=== PATIENT | female | born 1940 | race Caucasian/White ===

== ENCOUNTER → 2017-08-01 | Outpatient (CLI) | payer MEDICARE ==
--- NOTE | 2017-08-01 15:43 | RAD ---
Indication: Lung nodule. Axial imaging through the chest was performed without intravenous contrast. No prior studies are available for comparison. No axillary lymphadenopathy is detected. No hilar or mediastinal lymphadenopathy is identified. There is a very large hiatal hernia present. No pericardial or pleural fluid is identified. There are innumerable tiny nodules noted throughout bilateral upper and lower lobes. Many of these are subpleural in location. These all appear to be approximately 2 to 5 mm in size. No dominant mass is identified. The upper abdomen demonstrates postop changes of right nephrectomy. There are bilateral breast implants with calcifications of the implant shells. Impression: 1. Very large hiatal hernia. 2. Innumerable subcentimeter pulmonary nodules. These are indeterminate. These could be owing to prior granulomatous exposure, however, metastatic disease cannot be entirely excluded. Close follow-up is recommended with repeat CT chest in 3 months to confirm stability. PQRS Compliance Statement: One or more of the following individualized dose reduction techniques were utilized for this examination: 1. Automated exposure control 2. Adjustment of the mA and/or kV according to patient size 3. Use of iterative reconstruction technique
== END | disposition home or self-care (01) ==
LOC: CT 14:59
PROVIDERS: ATTEND Internal Medicine Pulmonary Disease
DX: R91.8 Other nonspecific abnormal finding of lung field (principal); K44.9 Diaphragmatic hernia without obstruction or gangrene; Z90.5 Acquired absence of kidney; Z98.890 Other specified postprocedural states
CPT/HCPCS: 71250

== ENCOUNTER → 2017-12-09 | Outpatient (CLI) | payer MEDICARE ==
--- NOTE | 2017-12-09 13:42 | RAD ---
Indication: Right renal cancer status post right nephrectomy in April 2017. Technique: CT abdomen and pelvis without IV contrast with multiplanar reformats. Comparison: None Findings: Limited study due to lack of IV contrast. Noncontrast appearance of the liver, spleen, gallbladder, pancreas, adrenals is within normal limits. Status post right nephrectomy. No abnormal soft tissue in the surgical bed. Left kidney demonstrates no hydronephrosis or nephrolithiasis. No retroperitoneal or pelvic adenopathy. No bowel obstruction. Bladder shows no radiopaque stones. Uterus is surgically absent. No solid adnexal lesions. No suspicious bony lesions. Impression: Limited study due to lack of IV contrast. Post surgical changes from right nephrectomy. No obvious soft tissue metastasis in the abdomen or pelvis. PQRS Compliance Statement: One or more of the following individualized dose reduction techniques were utilized for this examination: 1. Automated exposure control 2. Adjustment of the mA and/or kV according to patient size 3. Use of iterative reconstruction technique
== END | disposition home or self-care (01) ==
LOC: CT 12:36
PROVIDERS: ATTEND Family Medicine
DX: C64.1 Malignant neoplasm of right kidney, except renal pelvis (principal); Z90.5 Acquired absence of kidney; Z85.528 Personal history of other malignant neoplasm of kidney
CPT/HCPCS: 74176

== ENCOUNTER → 2017-12-09 | Outpatient (CLI) | payer MEDICARE ==
--- NOTE | 2017-12-09 13:38 | RAD ---
Indication: Lung nodule. History of right kidney cancer. Technique: CT of chest, abdomen and pelvis without IV contrast Comparison: Previous CT from 08/01/2017. Findings: Limited study due to lack of IV contrast. Clear neck base. Aberrant right superior and artery noted. Heart is normal in size. No pericardial or pleural effusion. Bilateral breast implants noted. 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 No axillary, mediastinal or hilar adenopathy. Diffuse bilateral 2 to 3 mm nodules are seen also seen on previous study. The patient registration representative nodule in the right middle lobe measuring 4 mm (series 2 image [id number]). No suspicious bony lesion. Impression: 1. Stable diffuse bilateral innumerable 2 to 4 mm pulmonary nodules. These may be inflammatory or infectious nodules. Although less likely metastatic disease not ruled out. Continued surveillance recommended. 2. Large hiatal hernia with herniation of stomach into the thorax. PQRS Compliance Statement: One or more of the following individualized dose reduction techniques were utilized for this examination: 1. Automated exposure control 2. Adjustment of the mA and/or kV according to patient size 3. Use of iterative reconstruction technique
== END | disposition home or self-care (01) ==
LOC: CT 12:45
PROVIDERS: ATTEND Internal Medicine Pulmonary Disease
DX: R91.8 Other nonspecific abnormal finding of lung field (principal); K44.9 Diaphragmatic hernia without obstruction or gangrene; Z85.528 Personal history of other malignant neoplasm of kidney
CPT/HCPCS: 71250

== ENCOUNTER → 2018-06-30 | Outpatient (CLI) | payer MEDICARE ==
--- NOTE | 2018-06-30 15:14 | RAD ---
CT CHEST WO CONTRAST dated 06/30/2018 3:30 PM Indication: Follow-up lung nodule.LUNG NODULE. Comparison: 12/09/2017 Technique: Contiguous axial imaging of the chest performed without the administration of intravenous contrast. One or more of the following individualized dose reduction techniques were utilized for this examination: 1. Automated exposure control 2. Adjustment of the mA and/or kV according to patient size 3. Use of iterative reconstruction technique Findings: Heart size is within normal limits. No pericardial effusion. There is an apparent right subclavian artery. Thoracic aorta normal in caliber. No mediastinal, hilar or axillary lymphadenopathy. Mild heterogeneity of the thyroid gland, unchanged. There is a large hiatal hernia, unchanged. Central airways are patent. Mild diffuse bronchial wall thickening. Too numerous to count small nodules scattered throughout both lungs, predominantly in a subpleural and peribronchial vascular distribution, not significantly changed given differences in technique. No consolidation or pleural effusion. No pneumothorax. Limited images of upper abdomen unremarkable. There is a small splenic artery aneurysm measuring 12 mm diameter, unchanged. The right kidney is surgically absent. No acute bony abnormality. Multilevel spondylosis. IMPRESSION: 1. Too numerous to count noncalcified pulmonary nodules scattered throughout both lungs, stable from prior exam. This is nonspecific. Consider chronic atypical infection or old granulomatous disease. Metastatic disease considered less likely due to lack of interval change. 2. Large hiatal hernia. 3. Aberrant right subclavian artery. 4. Small splenic artery aneurysm, unchanged. Electronically signed by: Chong Pruett MD (06/30/2018 3:10 PM) [id number]
== END | disposition home or self-care (01) ==
LOC: CT 14:29
PROVIDERS: ATTEND Internal Medicine Pulmonary Disease
DX: R91.1 Solitary pulmonary nodule (principal); K44.9 Diaphragmatic hernia without obstruction or gangrene; I72.8 Aneurysm of other specified arteries; M47.894 Other spondylosis, thoracic region
CPT/HCPCS: 71250

== ENCOUNTER → 2019-03-29 | Outpatient (CLI) | payer MEDICARE ==
[~2019-03-29] MED LIST: IOHEXOL 240 MG/ML 50ML VIAL. ONE; IOHEXOL 300 MG/ML 75 ML VIAL. IV ONE
[2019-03-29 08:05] LABS: CREATININE 1.2 mg/dL (0.6-1.0); GFR 43.7
--- NOTE | 2019-03-29 09:43 | RAD ---
PQRS Compliance statement: One or more of the following individualized dose reduction techniques were utilized for this examination: 1. Automated exposure control. 2. Adjustment of the mA and/or kV according to patient size. 3. Use of iterative reconstruction technique. Indication:Right renal cell carcinoma. Status post right nephrectomy. TECHNIQUE: CT abdomen and pelvis with IV contrast with multiplanar reformats. COMPARISON: CT abdomen pelvis from 12/09/2017. FINDINGS: Heart is normal in size. No pericardial or pleural effusion. Large sliding hiatal hernia noted. Mild centrilobular nodules are seen in the bilateral lower lobes likely infectious or inflammatory. Liver, spleen, bladder, pancreas, right adrenal within normal limits. Stable nodular thickening of the left adrenal gland likely secondary to adenomatous hyperplasia. Status post right nephrectomy. No abnormal enhancing soft tissue in the nephrectomy bed. Left kidney demonstrates no nephrolithiasis, hydronephrosis or suspicious renal lesion. No enlarged retroperitoneal or pelvic adenopathy. No free pelvic fluid or ascites. Small bilateral fat-containing inguinal hernia. No bowel obstruction. Status post hysterectomy. Urinary bladder demonstrates no radiopaque stones. No pneumoperitoneum. No suspicious bony lesion. IMPRESSION: 1. Status post right nephrectomy without evidence of metastatic disease. 2. Large sliding hiatal hernia. 3.. Bilateral centrilobular nodules lower lobes likely inflammatory or infectious above. Attention on follow-up. Electronically signed by: Pedrito Harris DO (03/29/2019 9:39 AM) [facility]
== END | disposition home or self-care (01) ==
LOC: CT 07:10
PROVIDERS: ATTEND Family Medicine
DX: C64.1 Malignant neoplasm of right kidney, except renal pelvis (principal); K44.9 Diaphragmatic hernia without obstruction or gangrene; R91.8 Other nonspecific abnormal finding of lung field; Z88.8 Allergy status to other drugs, medicaments and biological substances; Z90.5 Acquired absence of kidney
CPT/HCPCS: 36415; 74177; 82565; Q9967

== ENCOUNTER → 2019-06-07 | Outpatient (CLI) | payer MEDICARE ==
--- NOTE | 2019-06-07 17:54 | RAD ---
Examination: CT CHEST WO CONTRAST History: Lung nodule follow-up Comparison/Correlation: 06/30/2018 CT chest without contrast Findings: Axial images of the chest were obtained without contrast. Sagittal and coronal reformatted images were provided. Bilateral breast implants are seen with calcified margins. Intracapsular rupture bilaterally is noted. No enlarged thoracic lymph nodes. Large hiatal hernia is evident with the stomach measuring nearly completely intrathoracic. Numerous nodules throughout the lung quintero are noncalcified measuring less than 0.4 cm diameter. No pleural or pericardial effusion. Bony structures are unremarkable. Left adrenal gland nodularity which probably represents benign adenoma stable. Impression: No change in the numerous pulmonary nodules. No new pulmonary nodules definitely seen. No new infiltrate. Large hiatal hernia. PQRS Compliance Statement: One or more of the following individualized dose reduction techniques were utilized for this examination: 1. Automated exposure control 2. Adjustment of the mA and/or kV according to patient size 3. Use of iterative reconstruction technique Electronically signed by: Shahzad Meza MD (06/07/2019 5:52 PM) [facility]
== END | disposition home or self-care (01) ==
LOC: CT 14:22
PROVIDERS: ATTEND Internal Medicine Pulmonary Disease
DX: R91.1 Solitary pulmonary nodule (principal); K44.9 Diaphragmatic hernia without obstruction or gangrene; R92.8 Other abnormal and inconclusive findings on diagnostic imaging of breast; Z98.82 Breast implant status
CPT/HCPCS: 71250

== ENCOUNTER → 2020-04-17 | Outpatient (CLI) | payer MEDICARE ==
--- NOTE | 2020-04-17 10:37 | RAD ---
Right upper quadrant abdominal ultrasound without comparison for right upper quadrant pain. TECHNIQUE AND FINDINGS: Real-time grayscale and color Doppler evaluation of the right upper quadrant abdominal organs is performed. The right kidney is surgically absent. The liver measures 13.6 cm and is grossly unremarkable, with no intrahepatic biliary ductal dilatation or focal parenchymal abnormality. Portal vein is patent and hepatopedal. Common bile duct measures 3 mm in thickness. The gallbladder is fluid distended and grossly unremarkable with no shadowing stones or sludge and no sonographic Barton sign elicited. Visualized portions the pancreas are grossly unremarkable. Distal body and tail are not well seen however. IMPRESSION: 1. No sonographic evidence of acute cholecystitis. 2. Prior right nephrectomy. Electronically signed by: Girish Alvarado MD (04/17/2020 10:34 AM) [id number]
== END | disposition home or self-care (01) ==
LOC: US 09:19
PROVIDERS: ATTEND Family Medicine
DX: R10.11 Right upper quadrant pain (principal); N32.89 Other specified disorders of bladder; Z90.5 Acquired absence of kidney
CPT/HCPCS: 76705